=== PATIENT | female | born 1950 | race Caucasian/White ===

== ENCOUNTER → 2016-11-14 | Outpatient (CLI) | payer MEDICARE, OTHER ==
[~2016-11-14] MED LIST: ERGOCALCIFER50000 IU PO; FEMARA PO; ICAPS AREDS FO1 EACH PO; MAG-OX 400400 MG/TAB PO; NEXIUM24HROTC PO; PRINIVIL20 MG PO; ZYRTEC 10MG10 MG PO
== END ==
LOC: COL.RAD 08:53
DX: E04.2 Nontoxic multinodular goiter (principal); R53.83 Other fatigue; Z85.3 Personal history of malignant neoplasm of breast

== ENCOUNTER → 2017-02-06 | Outpatient (CLI) | payer MEDICARE, OTHER | LOC: COL.VAS 07:55 | DX: I08.0 Rheumatic disorders of both mitral and aortic valves (principal); Z79.899 Other long term (current) drug therapy ==

== ENCOUNTER 2017-07-09 12:42 | Day surgery (SDC) | payer MEDICARE, OTHER ==
[~2017-07-09] VITALS: Ht 165.1 cm; Wt 95.5 kg
[2017-07-09 13:00] VITALS: BP 166/91; PULSE 108; TEMP 97.8
[2017-07-09] MEDS ORDERED: PRINIVIL20 MG PO (13:14)
[2017-07-09] MEDS ORDERED: MAG-OX 400400 MG/TAB PO (13:14)
[2017-07-09] MEDS ORDERED: ICAPS AREDS FO1 EACH PO (13:15)
[2017-07-09] MEDS ORDERED: ERGOCALCIFER50000 IU PO (13:16)
[2017-07-09] MEDS ORDERED: FEMARA PO (13:19)
[2017-07-09] MEDS ORDERED: ZYRTEC 10MG10 MG PO (13:20)
[2017-07-09] MEDS ORDERED: NEXIUM24HROTC PO (13:20)
[2017-07-09 14:50] VITALS: BP 146/86; PULSE 103; TEMP 98.8
[2017-07-09 15:05] VITALS: BP 132/77; PULSE 92
[2017-07-09 15:20] VITALS: BP 130/66; PULSE 76
[2017-07-09 15:35] VITALS: BP 133/73; PULSE 74
[2017-07-09 15:50] VITALS: BP 112/63; PULSE 74
== END 2017-07-09 16:00 | disposition home or self-care (01) ==
LOC: SDCO 12:42
DX: K29.50 Unspecified chronic gastritis without bleeding (principal); K21.9 Gastro-esophageal reflux disease without esophagitis; K57.30 Diverticulosis of large intestine without perforation or abscess without bleeding; K64.0 First degree hemorrhoids; Z85.038 Personal history of other malignant neoplasm of large intestine; Z85.3 Personal history of malignant neoplasm of breast; Z85.72 Personal history of non-Hodgkin lymphomas; Z87.09 Personal history of other diseases of the respiratory system; Z96.653 Presence of artificial knee joint, bilateral; Z95.828 Presence of other vascular implants and grafts; Z90.49 Acquired absence of other specified parts of digestive tract; Z90.10 Acquired absence of unspecified breast and nipple
CPT/HCPCS: OP; J2250; J2405; J3010; J7030

== ENCOUNTER 2017-08-16 06:25 | Day surgery (SDC) | payer MEDICARE, OTHER ==
[~2017-08-16] VITALS: Ht 165.1 cm; Wt 95.2 kg
[2017-08-16 07:10] VITALS: BP 140/79; PULSE 94; TEMP 97.1
[2017-08-16 07:50] VITALS: BP 123/68; PULSE 76; TEMP 97.1
[2017-08-16 08:05] VITALS: BP 118/68; PULSE 74
[2017-08-16 08:20] VITALS: BP 113/83; PULSE 63
== END 2017-08-16 08:30 | disposition home or self-care (01) ==
LOC: SDCO 06:25
DX: Z12.11 Encounter for screening for malignant neoplasm of colon (principal); D12.0 Benign neoplasm of cecum; D12.2 Benign neoplasm of ascending colon; K57.30 Diverticulosis of large intestine without perforation or abscess without bleeding; I10 Essential (primary) hypertension; J45.909 Unspecified asthma, uncomplicated; K21.9 Gastro-esophageal reflux disease without esophagitis; Z96.653 Presence of artificial knee joint, bilateral; Z90.13 Acquired absence of bilateral breasts and nipples; Z90.49 Acquired absence of other specified parts of digestive tract; Z85.3 Personal history of malignant neoplasm of breast; Z85.038 Personal history of other malignant neoplasm of large intestine; Z86.010 Personal history of colon polyps; Z85.72 Personal history of non-Hodgkin lymphomas
CPT/HCPCS: J2704; J7120

== ENCOUNTER → 2017-10-24 | Outpatient (CLI) | payer MEDICARE, OTHER | LOC: COL.RAD 07:32 | DX: C50.411 Malignant neoplasm of upper-outer quadrant of right female breast (principal); C18.9 Malignant neoplasm of colon, unspecified; C85.90 Non-Hodgkin lymphoma, unspecified, unspecified site; Z98.82 Breast implant status | CPT/HCPCS: Q9967 ==

== ENCOUNTER → 2017-11-21 | Outpatient (CLI) | payer MEDICARE, OTHER | LOC: COL.PUL 07:56 | DX: R05 Cough (principal); R06.00 Dyspnea, unspecified; Z77.22 Contact with and (suspected) exposure to environmental tobacco smoke (acute) (chronic) ==

== ENCOUNTER → 2018-02-19 | Outpatient (CLI) | payer MEDICARE, OTHER ==
[~2018-02-19] VITALS: Ht 166.4 cm; Wt 99.1 kg
[~2018-02-19] MED LIST changes: +BREO IH; +PRAVACHOL 20MG20 MG PO; +PROAIR HFA0.09 MG/AC IH
[2018-02-19 09:12] VITALS: BP 122/72; PULSE 88
== END ==
LOC: LIGHT 08:50
DX: J45.909 Unspecified asthma, uncomplicated (principal); E78.5 Hyperlipidemia, unspecified; M15.9 Polyosteoarthritis, unspecified; K21.9 Gastro-esophageal reflux disease without esophagitis; Z68.35 Body mass index [BMI] 35.0-35.9, adult; Z71.3 Dietary counseling and surveillance
CPT/HCPCS: G0463

== ENCOUNTER → 2018-03-17 | Outpatient (CLI) | payer MEDICARE, OTHER | LOC: LIGHT 12:59 | DX: Z01.89 Encounter for other specified special examinations (principal) ==

== ENCOUNTER → 2018-03-18 | Outpatient (CLI) | payer MEDICARE, OTHER | LOC: LIGHT 08:49 | DX: Z01.818 Encounter for other preprocedural examination (principal) ==

== ENCOUNTER → 2018-03-27 | Outpatient (CLI) | payer MEDICARE, OTHER ==
[~2018-03-27] VITALS: Ht 166.4 cm; Wt 95.7 kg
[2018-03-27 09:59] VITALS: BP 122/66; PULSE 80
== END ==
LOC: LIGHT 09:52
DX: J45.909 Unspecified asthma, uncomplicated (principal); E78.5 Hyperlipidemia, unspecified; M15.9 Polyosteoarthritis, unspecified; K21.9 Gastro-esophageal reflux disease without esophagitis; Z68.34 Body mass index [BMI] 34.0-34.9, adult; Z71.3 Dietary counseling and surveillance
CPT/HCPCS: G0463

== ENCOUNTER → 2018-07-10 | Outpatient (CLI) | payer MEDICARE, OTHER ==
[~2018-07-10] VITALS: Ht 166.4 cm; Wt 86.6 kg
[2018-07-10 11:34] VITALS: BP 114/60; PULSE 64
== END ==
LOC: LIGHT 06-05 11:51
DX: J45.909 Unspecified asthma, uncomplicated (principal); E78.5 Hyperlipidemia, unspecified; M15.9 Polyosteoarthritis, unspecified; K21.9 Gastro-esophageal reflux disease without esophagitis; E66.3 Overweight; Z68.31 Body mass index [BMI] 31.0-31.9, adult; Z71.3 Dietary counseling and surveillance
CPT/HCPCS: G0463

== ENCOUNTER → 2018-08-06 | Outpatient (CLI) | payer MEDICARE, OTHER | LOC: COL.RAD 10:30 | DX: C50.411 Malignant neoplasm of upper-outer quadrant of right female breast (principal); C82.01 Follicular lymphoma grade I, lymph nodes of head, face, and neck; E04.2 Nontoxic multinodular goiter ==

== ENCOUNTER → 2018-08-18 | Outpatient (CLI) | payer MEDICARE, OTHER ==
[~2018-08-18] VITALS: Ht 166.4 cm; Wt 85.0 kg
[2018-08-18 08:32] VITALS: BP 131/65; PULSE 76
[2018-08-18 09:55] VITALS: BP 142/71; PULSE 61
== END ==
LOC: COL.RAD 08:14
DX: E04.1 Nontoxic single thyroid nodule (principal); C82.01 Follicular lymphoma grade I, lymph nodes of head, face, and neck; Z85.3 Personal history of malignant neoplasm of breast; Z90.13 Acquired absence of bilateral breasts and nipples; Z92.21 Personal history of antineoplastic chemotherapy; Z85.038 Personal history of other malignant neoplasm of large intestine; Z79.899 Other long term (current) drug therapy

== ENCOUNTER 2018-08-22 06:50 | Day surgery (SDC) | payer MEDICARE, OTHER ==
[~2018-08-22] VITALS: Ht 165.1 cm; Wt 84.5 kg
[2018-08-22 07:47] VITALS: BP 122/76; PULSE 69; TEMP 98.8
[2018-08-22 10:15] VITALS: BP 139/73; PULSE 58; TEMP 97.3
[2018-08-22 10:25] VITALS: BP 139/73; PULSE 54
[2018-08-22 10:31] VITALS: BP 129/69; PULSE 56
[2018-08-22 11:30] VITALS: BP 139/73; PULSE 60
== END 2018-08-22 10:40 | disposition home or self-care (01) ==
LOC: SDCO 06:50
DX: Z12.11 Encounter for screening for malignant neoplasm of colon (principal); D12.2 Benign neoplasm of ascending colon; K21.9 Gastro-esophageal reflux disease without esophagitis; I10 Essential (primary) hypertension; E78.00 Pure hypercholesterolemia, unspecified; J44.9 Chronic obstructive pulmonary disease, unspecified; Z85.72 Personal history of non-Hodgkin lymphomas; E04.9 Nontoxic goiter, unspecified; Z90.49 Acquired absence of other specified parts of digestive tract; Z90.13 Acquired absence of bilateral breasts and nipples; Z96.653 Presence of artificial knee joint, bilateral; Z86.010 Personal history of colon polyps; Z85.038 Personal history of other malignant neoplasm of large intestine; Z85.3 Personal history of malignant neoplasm of breast
CPT/HCPCS: J2704; J7030

== ENCOUNTER → 2018-12-10 | Outpatient (CLI) | payer MEDICARE, OTHER | LOC: COL.RAD 07:44 | DX: C82.01 Follicular lymphoma grade I, lymph nodes of head, face, and neck (principal); C50.411 Malignant neoplasm of upper-outer quadrant of right female breast; C18.7 Malignant neoplasm of sigmoid colon; E04.9 Nontoxic goiter, unspecified; Z98.82 Breast implant status | CPT/HCPCS: Q9967 ==

== ENCOUNTER 2019-03-06 08:16 | Day surgery (SDC) | payer MEDICARE, OTHER ==
[~2019-03-06] VITALS: Ht 165.1 cm; Wt 80.0 kg
[~2019-03-06 08:16] MED LIST changes: -ERGOCALCIFER50000 IU PO; -ICAPS AREDS FO1 EACH PO; +PRESERVISION1 SGL PO; +VITAMIN D 50,1.25 MG PO
[2019-03-06] MEDS ORDERED: CALCIUM CARBON650 M2 PO (08:32)
[2019-03-06 10:35] VITALS: BP 122/81; PULSE 54; TEMP 97.8
--- NOTE | 2019-03-06 10:35 | NUR ---
Pt arrived to Endo room 3 from procedure. Pt A/O x4. Assist x2 pt to chair from stretcher. Steady gait. Pt denies any pain or nausea. Request water at this time. Pt's spouse in room. VSS.
[2019-03-06 10:50] VITALS: BP 132/75; PULSE 51; TEMP 97.8
--- NOTE | 2019-03-06 10:55 | NUR ---
Pt tolerating sips of water. Denies any pain or nausea. VSS.
[2019-03-06 11:05] VITALS: BP 131/59; PULSE 49; TEMP 97.8
[2019-03-06 11:20] VITALS: BP 116/70; PULSE 87; TEMP 98.6
--- NOTE | 2019-03-06 11:20 | NUR ---
Discussed discharge intructions, procedure information and meds with pt. Answered all questions to pt and pt's satisfaction. Signed paperwork in chart.
--- NOTE | 2019-03-06 11:26 | NUR ---
Pt discharged from [facility]. Pt left unit via WC to private vehicle driven by .
== END 2019-03-06 11:26 | disposition home or self-care (01) ==
LOC: SDCO 08:16
DX: Z12.11 Encounter for screening for malignant neoplasm of colon (principal); D12.2 Benign neoplasm of ascending colon; Z86.010 Personal history of colon polyps; Z85.038 Personal history of other malignant neoplasm of large intestine; Z80.3 Family history of malignant neoplasm of breast; K21.9 Gastro-esophageal reflux disease without esophagitis; I10 Essential (primary) hypertension; E78.00 Pure hypercholesterolemia, unspecified; Z96.653 Presence of artificial knee joint, bilateral; Z90.13 Acquired absence of bilateral breasts and nipples; Z90.49 Acquired absence of other specified parts of digestive tract; J44.9 Chronic obstructive pulmonary disease, unspecified; Z92.21 Personal history of antineoplastic chemotherapy
CPT/HCPCS: J2704; J7120

== ENCOUNTER 2019-10-09 08:13 | Day surgery (SDC) | payer MEDICARE, OTHER ==
[~2019-10-09] VITALS: Ht 165.1 cm; Wt 83.9 kg
[2019-10-09] VITALS (7 sets, daily range): BP systolic 90–120; BP diastolic 50–71; PULSE 56–68; TEMP 98.3–99.1
[~2019-10-09 08:13] MED LIST changes: +CALCIUM CARBON650 M2 PO
[2019-10-09] MEDS ORDERED: PRESERVISION1 SGL PO (08:32)
[2019-10-09] MEDS ORDERED: NEXIUM 40MG40 MG PO (08:32)
--- NOTE | 2019-10-09 16:49 | NUR ---
PT RETURNED FROM ENDO SUITE INTO BAY#3. PRESENT IN ROOM. PT ALERT AND ORIENTATED, DENIES PAIN OR NAUSEA AT THIS TIME. VSS, LUNGS CLEAR, HRR, BOWEL SOUNDS PRESENT. REQUESTS JET FRANK AND KENNA. WILL MONITOR PROGRESS.
--- NOTE | 2019-10-09 16:55 | NUR ---
PT TOLERATING FOOD AND FLUIDS WITHOUT DIFFICULTY. DENIES PAIN AND NAUSEA. WILL CONT TO MONITOR PROGRESS.
--- NOTE | 2019-10-09 16:57 | NUR ---
PT TOLERATING FOOD AND FLUIDS, VSS, ALERT AND ORIENTATED. DENIES NAUSEA OR PAIN. IV DC'D PER RIGHT FOREARM. NO REDNESS OR SWELLING NOTED. DISCHARGE INSTRUCTIONS GIVEN, PT VOICES UNDERSTANDING. PT DC'D PER WC TO FAMILY CAR, DRIVING.
== END 2019-10-09 11:20 | disposition home or self-care (01) ==
LOC: SDCO 08:13
DX: D12.2 Benign neoplasm of ascending colon (principal); K57.30 Diverticulosis of large intestine without perforation or abscess without bleeding; K21.9 Gastro-esophageal reflux disease without esophagitis; I10 Essential (primary) hypertension; E78.00 Pure hypercholesterolemia, unspecified; J45.909 Unspecified asthma, uncomplicated; J44.9 Chronic obstructive pulmonary disease, unspecified; M19.90 Unspecified osteoarthritis, unspecified site; E03.9 Hypothyroidism, unspecified; Z96.653 Presence of artificial knee joint, bilateral; Z90.49 Acquired absence of other specified parts of digestive tract; Z90.13 Acquired absence of bilateral breasts and nipples; Z86.010 Personal history of colon polyps; Z85.038 Personal history of other malignant neoplasm of large intestine; Z85.3 Personal history of malignant neoplasm of breast
CPT/HCPCS: J2704; J7120

== ENCOUNTER → 2020-07-02 | Outpatient (CLI) | payer MEDICARE, OTHER ==
[~2020-07-02] MED LIST changes: +NEXIUM 40MG40 MG PO
== END ==
LOC: ZCOL.LAB 17:29
DX: Z20.828 Contact with and (suspected) exposure to other viral communicable diseases (principal)

== ENCOUNTER → 2020-08-26 | Outpatient (CLI) | payer MEDICARE, OTHER | LOC: ZCOL.LAB 09:22 | DX: Z20.828 Contact with and (suspected) exposure to other viral communicable diseases (principal) ==

== ENCOUNTER 2020-09-08 11:55 | Emergency (ER) | payer MEDICARE, OTHER ==
[~2020-09-08] VITALS: Ht 165.1 cm; Wt 84.1 kg
[2020-09-08 12:09] VITALS: TEMP 98.3
[2020-09-08] MEDS ORDERED: AMOXICILLIN 8751 TAB PO (13:13)
[2020-09-08] MEDS ORDERED: VALTREX1 GM PO (13:13)
[2020-09-08 13:17] VITALS: BP 142/80; PULSE 74
== END 2020-09-08 13:30 | disposition home or self-care (01) ==
LOC: COL.ER 11:55
DX: K11.5 Sialolithiasis (principal); R51.9 Headache, unspecified; Z85.3 Personal history of malignant neoplasm of breast

== ENCOUNTER → 2021-07-07 | Outpatient (CLI) | payer MEDICARE, OTHER ==
[~2021-07-07] MED LIST changes: +AMOXICILLIN 8751 TAB PO; +VALTREX1 GM PO
== END ==
LOC: COL.VAS 13:26
DX: R00.1 Bradycardia, unspecified (principal)

== ENCOUNTER → 2021-11-24 | Outpatient (CLI) | payer MEDICARE, OTHER | LOC: COL.PUL 09:32 | DX: R06.02 Shortness of breath (principal) | CPT/HCPCS: J7674 ==